=== PATIENT | male | born 2000 | race Caucasian/White ===

== ENCOUNTER → 2022-07-09 | Emergency (ER) | payer BC ==
[~2022-07-09] VITALS: Ht 182.9 cm; Wt 90.7 kg
[~2022-07-09] MED LIST: ACETAMINOPHEN ES 500 MG TABLET ONE; ACETAMINOPHEN ES 500 MG TABLET PO ONE; IV NS 0.9% 1,000 ML IV ONE; ONDA4TAB11 PO; POTASSIUM CHLORIDE 20 MEQ TAB.PRT.SR PO ONE
--- NOTE | 2022-07-09 17:00 | NUR ---
[id number] HOME C/O NAUSEA AND VOMITING SINCE AM, STATES SMOKED WEED.TO HELP W/ SYMPTOMS. NO RELIEF. PT WAS GIVEN ZOFRAN 4MG IV RESEARCH RECRUITER.
--- NOTE | 2022-07-09 17:07 | NUR ---
BLOOD SPECIMEN SENT TO LAB
[2022-07-09 17:15] LABS: BASOPHILS % (AUTO) 0.2 % (0.0-2.0); HEMATOCRIT 47 % (39-51); HEMOGLOBIN 15.9 g/dL (13.5-17.5); LYMPHOCYTES % (AUTO) 9.5 % (20.0-44.0); MEAN CORPUSCULAR HGB CONC 34 g/dl (31.0-36.0); MEAN CORPUSCULAR VOLUME 87 fL (80-96); MONOCYTES # (AUTO) 0.7 K/uL (0.1-1.30); NEUTROPHILS # (AUTO) 9.3 K/uL (1.8-8.9); NEUTROPHILS % (AUTO) 84.3 % (43.0-81.0); PLATELET COUNT (AUTO) 252 K/uL (150-450); RED BLOOD CELL COUNT(AUTO) 5.42 MIL/uL (4.5-6.0)
[2022-07-09 17:47] LABS: ALBUMIN 4.9 g/dL (3.4-5.0); BILIRUBIN,DIRECT 0.2 mg/dL (0.0-0.2); BILIRUBIN,TOTAL 0.9 mg/dL (0.2-1.0); POTASSIUM 3.1 mmol/L (3.5-5.1); TOTAL PROTEIN, SERUM 8.6 g/dL (6.4-8.2)
[2022-07-09 18:02] LABS: CALCIUM, SERUM 9.5 mg/dL (8.5-10.1)
[2022-07-09 18:42] VITALS: BP 100/64
--- NOTE | 2022-07-09 18:43 | NUR ---
Patient discharged to home in stable condition. Written and verbal after care instructions given. Patient verbalizes understanding of instruction. IV removed. Catheter intact and site benign. Pressure and 4x4 applied to site. No bleeding noted.
== END | disposition home or self-care (01) ==
LOC: ER 17:57
DX: R11.2 Nausea with vomiting, unspecified (principal); Z79.899 Other long term (current) drug therapy
CPT/HCPCS: 99283; 96360; 85025; 80048; 83690; 80076; 36415; J7030